=== PATIENT | female | born 1995 | race Caucasian/White ===

== ENCOUNTER 2024-05-29 00:51 | Emergency (ER) | payer SELFPAY ==
[~2024-05-29] VITALS: Ht 160 cm; Wt 60.0 kg
[2024-05-29 01:00] VITALS: BP 130/86; PULSE 82; RESP 18; TEMP 98.8; O2SAT 100
[2024-05-29 02:25] LABS: HCG SCREEN NEGATIVE
== END 2024-05-29 03:56 | disposition home or self-care (01) ==
LOC: ER 01:24
DX: F10.129 Alcohol abuse with intoxication, unspecified (principal); Y90.8 Blood alcohol level of 240 mg/100 ml or more
CPT/HCPCS: 36415; 80320; 84703; 99283; G0480